=== PATIENT | male | born 1950 | race Caucasian/White ===

== ENCOUNTER 2023-07-26 09:10 | Day surgery (SDC) | payer OTHER ==
[~2023-07-26] VITALS: Ht 185.4 cm; Wt 97.5 kg
[~2023-07-26 09:10] MED LIST: CYCL10 PO; DUTA.5 PO; EZET10 PO; HIGH BP MEDS; Lactated Ringer's 1,000 ML IV ONE; Percocet 10-321 EACH PO; Prednisone20 MG PO; ROSU5 PO; Ropivacaine 0.5% HCl/Pf 5 MG/ML 20ML VIAL ONE; SULTRIDS PO; TAMS.4ER PO; ZESTRIL40 MG PO; cholesterol med
[2023-07-26] MEDS ORDERED: CeFAZolin Sodium 2,000 MG VIAL ONE (09:41)
[2023-07-26] MEDS ORDERED: NS 50 ML IV ONE (09:42)
[2023-07-26] MEDS ORDERED: ROSUVASTATIN CA40 MG PO (09:55)
[2023-07-26] MEDS ORDERED: FentaNYL Citrate 50 MCG/ML 2 ML Injection ONE (09:58)
[2023-07-26] MEDS ORDERED: propofoL 20 ML IV ONE (09:58)
[2023-07-26] MEDS ORDERED: Midazolam HCl 1MG / ML 2ML Vial ONE (09:58)
[2023-07-26] MEDS ORDERED: Lactated Ringer's 1,000 ML IV ONE (10:11)
[2023-07-26] MEDS ORDERED: Ropivacaine 0.5% HCl/Pf 5 MG/ML 20ML VIAL ONE (10:43)
--- NOTE | 2023-07-26 10:49 | NUR ---
07/26/23 1048 Criselda Greenberg TIMEOUT AT 0013
[2023-07-26] MEDS ORDERED: SuccINYLCHOLINE Chloride 100 MG/5 ML 5MLSYR ONE (11:16)
[2023-07-26] MEDS ORDERED: Rocuronium Bromide 10 MG/ML 5ML Injection IV ONE (11:16)
--- NOTE | 2023-07-26 11:33 | NUR ---
07/26/23 1133 Francisco Aranda GEL PADS PLACED UNDER KNEES AND TOES. ARMS KEPT TUCKED AT SIDES DUE TO STIFFNESS OF BOTH SHOULDERS. POSITIONING APPROVED BY [facility].
[2023-07-26] MEDS ORDERED: Ondansetron HCl 2 MG / ML 2ML Vial ONE (11:36)
[2023-07-26] MEDS ORDERED: Dexamethasone Sod Phos 10 MG/ML 1ML VIAL ONE (11:36)
[2023-07-26] MEDS ORDERED: EPINEPhrine HCl 1 MG/ML 1ML Amp XX ONE (11:43)
[2023-07-26] MEDS ORDERED: Sugammadex Sodium 200 MG/2ML SDV (100 MG/ML) ONE (11:43)
[2023-07-26] MEDS ORDERED: HYDROmorphone HCl/Pf 1MG SYR ONE (12:08)
[2023-07-26 12:54] VITALS: BP 137/77
--- NOTE | 2023-07-26 13:35 | NUR ---
07/26/23 1335 Hudson Paris IV NO LONGER PATENT UPON ARRIVAL IN SDU.
== END 2023-07-26 13:33 | disposition home or self-care (01) ==
LOC: ORSCSDS 09:10
PROVIDERS: Podiatrist Foot & Ankle Surgery
PROC: 0LQN0ZZ Repair Right Lower Leg Tendon, Open Approach (ICD-10-PCS; principal; 2023-07-26 10:45)
DX: S86.011A Strain of right Achilles tendon, initial encounter (principal); I10 Essential (primary) hypertension; E78.5 Hyperlipidemia, unspecified; Z79.899 Other long term (current) drug therapy; Z87.891 Personal history of nicotine dependence
CPT/HCPCS: 82947; C1713; J0171; J0330; J0690; J1100; J1170; J2250; J2405; J2704; J2795; J3010; J7120

== ENCOUNTER 2023-12-24 06:49 | Emergency (ER) | payer OTHER ==
[~2023-12-24] VITALS: Ht 185.4 cm; Wt 97.5 kg
[~2023-12-24 06:49] MED LIST changes: -Lactated Ringer's 1,000 ML IV ONE; +ROSUVASTATIN CA40 MG PO; -Ropivacaine 0.5% HCl/Pf 5 MG/ML 20ML VIAL ONE
[2023-12-24 07:18] VITALS: BP 174/96
[2023-12-24] MEDS ORDERED: Methocarbamol 500 MG Tab PO ONE (07:30)
[2023-12-24] MEDS ORDERED: Ketorolac Tromethamine 30mg Vial IM ONE (07:30)
[2023-12-24] MEDS ORDERED: Lidocaine 4% 1 Patch TOP ONE (07:30)
[2023-12-24] MEDS ORDERED: Morphine Sulfat15 MG PO (09:03)
[2023-12-24] MEDS ORDERED: Robaxin750 MG PO (09:03)
[2023-12-24] MEDS ORDERED: LIDO700A20 TOP (09:03)
[2023-12-24] MEDS ORDERED: FAMO20 PO (09:03)
== END 2023-12-24 09:10 | disposition home or self-care (01) ==
LOC: ER 06:49
DX: S22.42XA Multiple fractures of ribs, left side, initial encounter for closed fracture (principal); I10 Essential (primary) hypertension; W01.0XXA Fall on same level from slipping, tripping and stumbling without subsequent striking against object, initial encounter; Z87.891 Personal history of nicotine dependence; Z79.899 Other long term (current) drug therapy
CPT/HCPCS: 71101; 96372; 99283-25; A9270; J1885